=== PATIENT | male | born 1960 | race Caucasian/White ===

== ENCOUNTER 2023-05-14 09:24 | Outpatient (OUT) | payer MEDICARE, SELFPAY ==
[2023-05-14 09:53] LABS: Basophils Percent Auto 0.5 % (0.2-2.0); Eosinophils Absolute Auto 0.1 10^3/uL (0.0-0.7); Eosinophils Percent Auto 1.2 % (0.9-7.0); Hematocrit 46.5 % (42.0-54.0); Hemoglobin 15.5 g/dL (14.0-18.0); Immature Granulocytes Abs Auto 0.02 10^3/uL (0.00-0.03); Immature Granulocytes Pct Auto 0.4 % (0.0-0.5); Lymphocytes Absolute Auto 1.8 10^3/uL (1.2-3.8); Lymphocytes Percent Auto 31.3 % (20.5-60.0); Mean Corpuscular HGB Conc 33.3 g/dL (29.9-35.2); Mean Corpuscular Hemoglobin 33.6 pg (25.9-34.0); Mean Corpuscular Volume 100.9 fL (80.0-94.0); Mean Platelet Volume 8.9 fL (9.5-13.5); Monocytes Absolute Auto 0.8 10^3/uL (0.3-0.8); Monocytes Percent Auto 13.3 % (1.7-12.0); Neutrophils Percent Auto 53.3 % (43.0-75.0); Platelet Count 257 10^3/uL (150-450); Red Blood Count 4.61 10^6/uL (4.70-6.10); Red Cell Distribution Width 13.1 % (11.0-15.0); White Blood Count 5.7 10^3/uL (4.0-11.0)
[2023-05-14 10:15] LABS: Estimated Average Glucose 174 mg/dL; Glycohemoglobin A1C 7.7 % (4.5-6.2)
[2023-05-14 11:26] LABS: Prostate Specific Antigen Scrn 0.85 ng/mL (<=4.00)
[2023-05-14 12:04] LABS: Alanine Aminotransferase 51 U/L (16-63); Albumin Level 3.9 g/dL (3.4-5.0); Alkaline Phosphatase 48 U/L (46-116); Anion Gap 14.8; Aspartate Amino Transferase 25 U/L (15-37); BUN Creatinine Ratio 15.2; Bilirubin Total 0.5 mg/dL (0.2-1.0); Calcium 8.8 mg/dL (8.5-10.1); Carbon Dioxide 25.4 mmol/L (21.0-32.0); Chloride 102 mmol/L (98-107); Chol HDL Ratio 2.8; Cholesterol 138 mg/dL (<=200); Estimated GFR (African America >60 (>=60); Estimated GFR (Non-African Ame >60 (>=60); Globulin 3.8 g/dL; Glucose 167 mg/dL (74-106); HDL Cholesterol 49 mg/dL (40-60); LDL Cholesterol Calculated 66.6 mg/dL; Potassium 4.2 mmol/L (3.5-5.1); Sodium 138 mmol/L (136-145); Total Protein 7.7 g/dL (6.4-8.2); Triglycerides 112 mg/dL (<=150); VLDL CHOLESTEROL 22.4 mg/dL
== END 2023-05-14 09:25 | disposition home or self-care (01) ==
LOC: LAB 09:29
PROVIDERS: PCP Family Medicine; Visit Provider Family Medicine
DX: Z00.00 Encounter for general adult medical examination without abnormal findings (principal); E11.65 Type 2 diabetes mellitus with hyperglycemia; E78.5 Hyperlipidemia, unspecified; Z12.5 Encounter for screening for malignant neoplasm of prostate
CPT/HCPCS: 36415; 80053; 80061; 83036; 85025; G0103

== ENCOUNTER 2024-03-25 08:29 | Outpatient (OUT) | payer MEDICARE, SELFPAY ==
--- OUTSIDE RECORDS SUMMARY | 2024-03-25 08:52 | XMS_ITS | CCD ---
Author Organization [facility] Care Team Providers Care Borough Coordinator Name Role Phone PHYSICIAN, DEFAULT Admitting Unavailable PHYSICIAN, DEFAULT Attending Unavailable ASHLEE, DR JEN Aldridge Attending Unavailable ASHLEE, DR JEN Aldridge Consulting Unavailable ASHLEE, DR JEN Aldridge Primary Care Unavailable ASHLEE, DR JEN Aldridge Admitting Unavailable Jen Akins Unavailable DIVINE, CHRISTIAN Attending Unavailable AKINS, JEN Referring Unavailable BRINK, CHRISTIAN Attending Unavailable ASHLEE, JEN Referring Unavailable BRINK, CHRISTIAN Attending Unavailable AKINS, JEN Referring Unavailable BRINK, CHRISTIAN Attending Unavailable AKINS, JEN Referring Unavailable AYALA SOSA Attending Unavailable AKINS, JEN Referring Unavailable BRINK, CHRISTIAN Attending Unavailable AKINS, JEN Referring Unavailable BRINK, CHRISTIAN Attending Unavailable ASHLEE, JEN Referring Unavailable KARLO VELA Attending Unavailable AKINS, JEN Referring Unavailable Medications Current Medications Medication Drug Class(es) Dates Sig (Normalized) Sig (Original) atorvastatin 20 mg oral tablet (6 sources) HMG-CoA Reductase Inhibitor Start: 09-02-2023 End: 02-11-2024 take 1 tablet by mouth once daily Atorvastatin Active 0 .ROUTE .COMPLEX 90 February 11, 2024 9:48am take 1 tablet by mouth once daily Start: 09-02-2023 End: 09-02-2023 take 20 mg by mouth once daily Atorvastatin Discontinu ed 20 MG PO Daily September 02, 2023 1:00am September 02, 2023 3:24pm Start: 12-20-2021 take 1 tablet by sharad th once daily Atorvastatin Calcium 20 MG Atorvastatin Calcium 20MG, 1 (one) Tablet daily # 90, 12/20/2021, Ref. x3. Active Oral daily for 0 Dec, Active Diabetic Shoes (2 sources) Start: 03-03-2021 Diabetic Shoes Diabetic Shoes , 1 (one) Each as directed # 1, 03/03/2021, No Refill. Active as directed for 0 diabetic shoes with custom inserts *Reorder from [employer] for eRx and Interaction Alerts* Feb, Active glyBURIDE 2.5 mg / metFORMIN hydrochloride 500 mg oral tablet (6 sources) Biguanide, Sulfonylurea Start: 09-02-2023 End: 02-25-2024 take 1 tablet by mouth twice daily Glyburide-Metform in Active 0 .ROUTE .COMPLEX 180 February 25, 2024 11:10am take 1 tablet by mouth twice a day Start: 09-02-2023 End: 09-02-2023 take 1 tablet by mouth twice daily Glyburide-Metformin Discontinued 1 TAB PO Twice daily September 02, 2023 1:00am September 02, 2023 3:24pm take 1 tablet by sharad th twice daily glyBURIDE-metFORMIN 2.5-500 MG take 1 tablet by mouth twice a day for 90 Active meloxicam 7.5 mg oral tablet (2 sources) Nonsteroidal Anti-inflammatory Drug Start: 05-10-2023 take 1 tablet by mouth every twenty-four hours Meloxicam 7.5 MG 1 tablet Orally Once a day for 30 day(s) May, Active Problems Problem Classification Problem Date Documented Da te Episodic/Chronic Diabetes mellitus with complications (3 sources) Type 2 diabetes mellitus; Translations: [Type 2 diabetes mellitus with hyperglycemia] 03-24-2024 Chronic Diabetes mellitus without complication (1 source) Type 2 diabetes mellitus without complications; Translations: [Diabetes mellitus without mention of complication, type II or unspecified type, not stated as uncontrolled] 03-24-2024 Chronic Disorders of lipid metabolism (6 sources) Hyperlipidemia; Translations: [Hyperlipidemia, unspecified] 03-24-2024 Chronic Other ear and sense organ disorders (2 sources) Impacted cerumen; Translations: [Impacted cerumen] Episodic Other inflammatory condition of skin (2 sources) Rosacea; Translations: [Rosacea, unspecified] Chronic Other screening for suspected conditions (not mental disorders or infectious disease) (2 sources) Patient encounter status; Translations: [Encounter for screening for malignant neoplasm of prostate] 03-24-2024 Episodic Otitis media and related conditions (2 sources) Otitis; Translations: [Otitis] Episodic Results Test Name Value Interpretation Reference Range Facil ity GLYCOHEMOGLOBIN A1Con 2020 ADA RECOMMENDATION ADA THERAPEUTIC TARGET 6.0 - 7.0 ACTION SUGGESTED > 7.0 Normal [facility] Comment on above: Performed By: #### A 1C #### [facility] [address], [place] [address] Suzanne Granger Glucose [Mass/Vol] 183 mg/dL Normal [facility] Comment on above: Performed By: #### A 1C #### [facility] [address], [place] [address] Suzanne Granger HbA1c (Bld) [Mass fraction] 8.0 % Critically high <=6.0 [facility] Comment on above: Performed By: #### A 1C #### [facility] [address], [place] [address] Suzanne Granger Vital Signs Date Time Vital Sign Value Performing Clinician Pardeepi saeed 03-24-2024 11:38-0400 Body height 165.1 cm [facility] 03-24-2024 11:38-0400 Body mass index (BMI) [Ratio] 30.1 kg/m2 [facility] 03-24-2024 11:38-0400 Body weight 82.1 kg [facility] 03-24-2024 11:38-0400 Diastolic blood pressure 74 mm[Hg] [facility] 03-24-2024 11:38-0400 Heart rate 90 /min [facility] 03-24-2024 11:38-0400 Systolic blood pressure 116 mm[Hg] [facility] Encounters Encounter Date Encounter Type Care Provider Facility Start: 03-24-2024 End: 03-24-2024 ambulatory [facility] Work Phone: Start: 03-24-2024 End: 03-24-2024 Patient encounter procedure [facility] Work Phone: Start: 06-20-2023 End: 06-20-2023 ambulatory CHRISTIAN HASKINS Not Available Start: 06-13-2023 End: 06-13-2023 ambulatory CHRISTIAN HASKINS Not Available Start: 06-11-2023 End: 06-11-2023 ambulatory AYALA SOSA Not Available Start: 06-06-2023 End: 06-06-2023 ambulatory CHRISTIAN BRLINDSEY Not Available Start: 06-04-2023 End: 06-04-2023 ambulatory CHRISTIAN BRINK Not Available Start: 05-28-2023 End: 05-28-2023 ambulatory CHRISTIAN BRINK Not Available Start: 05-23-2023 End: 05-24-2023 ambulatory CHRISTIAN BRINK Not Available Start: 05-21-2023 Telephone encounter Jen Akins [facility] Start: 05-21-2023 End: 05-21-2023 ambulatory KARLO VELA [facility] [id number] Other Start: 02-27-2021 End: 02-28-[address] JEN AKINS Facility: Start: 11-05-2018 End: 11-06-2018 Patient encounter procedure DEFAULT PHYSICIAN Facility:[facility] Plan of Treatment Date Care Activity Detail Author Comprehensive metabo lic 2000 panel - Serum or Plasma [facility] enter Microalbumin [Mass/volume] in Urine [facility] Immunizations Immunization Date Immunization Notes Care Provider Fa cility 05-01-2022 influenza virus vaccine, split virus (incl. purified surface antigen) Jen Akins Other [facility] [employer] Other 05-01-2022 influenza virus vaccine, unspecified formulation [facility] 04-11-2021 COVID-19 Vaccine Pfi zer - Documentation Purposes Only Jen Akins Other [facility] 04-03-2021 influenza virus vaccine, split virus (incl. purified surface antigen) Jen Akins Other [employer] [facility] Other 04-03-2021 influenza virus vaccine, unspecified formulation [facility] 10-06-2020 COVID-19 Vaccine Pfi zer - Documentation Purposes Only Jen Akins Other [facility] 09-15-2020 COVID-19 Vaccine Pfi zer - Documentation Purposes Only Jen Akins Other [facility] 03-30-2020 influenza virus vaccine, split virus (incl. purified surface antigen) Jen Akins Other [facility] [facility] Other 03-30-2020 influenza virus vaccine, unspecified formulation [facility] 03-14-2017 tetanus and diphther ia toxoids, adsorbed, preservative free, for adult use (5 Lf of tetanus toxoid and 2 Lf of diphtheria toxoid) Jen Akins Other [facility] 12-11-2016 pneumococcal polysaccharide vaccine, 23 valent Jen Akins Other [facility] 03-26-2016 tetanus and diphther ia toxoids, adsorbed, preservative free, for adult use (5 Lf of tetanus toxoid and 2 Lf of diphtheria toxoid) Jen Akins Other [facility] Payers Date Payer Category Payer Medicare [id number] 2.1 [id number] 1961 Self-pay [id number] 1960 Unknown [id number] 1960 Unknown [id number] [id number] .[id number] 1958 Unknown [id number] 2.16.840 .[id number] 1958 Unknown [id number] 2.16.840 .[id number] 1958 Unknown [id number] 2.16.840 .[id number] 1958 Unknown [id number] 2.16.840 .[id number] 1958 Unknown [id number] 2.16.840 .[id number] 1958 Unknown [id number] 2.16.840 .[id number] 1958 Unknown [id number] 2.16.840. [id number] Unknown Unknown [id number] 2.16.84 [id number] Social History Date Type Detail Facility Unknown if ever smoked [facility] Other Sex Assigned At Sex Assigned At Bir th [facility] [employer] [facility] Other Start: 05-10-2023 Tobacco smoking status NHIS Never smoked tobacco (finding) [facility] Start: 1960 Sex Assigned At Male F [facility] Evaluation note Note Date & Type Note Facility Evaluation note No Information [facility] [employer] Other Evaluation note Note Date & Type Note Facility Evaluation note Diagnosis Onset Date Hyperlipidemia, unspecified acute Screening PSA (prostate specific antigen) acute Type II diabetes mellitus ac alana [facility] Work Phone: History general Narrative - Reported Note Date & Type Note Facility History general Narrative - Reported Type Medical History Rosacea Medical History Hyperlipidemia, unspecified Surgical History R foot surgery - 4th 5th toes 2016 (Dr. Katarzyna Pozo) Hospitalization History Heat Stroke [facility] Other Summary Purpose Family History Relationship Condition Age at Onset Recorded Date/T luana father Unknown mother Diabetes mellitus Unknown Advance Directives Advance Directive Response Recorded Date/ Time Advance Directives No March 11:23am Chief Complaint and Reason for Visit Chief Complaint diabetic check up/ra sh on face Reason for Visit Hyperlipidemia, unsp ecified Screening PSA (prostate specific antigen) Type II diabetes mellitus Additional Source Comments (unrecognized sect ion and content) No Status Records FoundNo Status Records FoundNo Status Records Found INFORMATION SOURCE (unrecogn ized section and content) DATE CREATED AUTHOR 11/12/2018 [facility] DATE CREATED AUTHOR AUTHOR'S ORGANIZ ATION 02/28/2021 [facility] DATE CREATED AUTHOR AUTHOR'S ORGANIZ ATION 06/22/2023 [facility] EPIC REASON FOR VISIT (unrecogniz ed section and content) pt/ot ordermessage Care Teams (unrecognized sec tion and content) Team Status: Active Member Role Status Dates Jen Akins MD Primary Care Provider Active Team Status: Inactive Member Role Status Dates Jen Akins MD Primary Care Provide r, Attending Provider Active Start: March 24, 2024 End: March 24, 2024 Goals (unrecognized section and content) Goals may be documented in a n alternate section FOR RECORDS PERTAINING TO PATIENTS WHO ARE OR HAVE BEEN ENROLLED IN A CHEMICAL DEPENDENCY/SUBSTANCEABUSE PROGRAM, SOME INFORMATION MAY BE OMITTED. This clinical summary was aggregated from multiple sources. Caution should be exercised in using it in the provision of clinical care. This summary normalizes information from multiple sources, and as a consequence, information in this document may materially change the coding, format and clinical context of patient data. In addition, data may be omitted in some cases. CLINICAL DECISIONS SHOULD BE BASED ON THE PRIMARY CLINICAL RECORDS. [facility]. provides no warranty or guarantee of the accuracy or completeness of information in this document.
[2024-03-25 08:56] LABS: Basophils Percent Auto 0.5 % (0.2-2.0); Eosinophils Absolute Auto 0.1 10^3/uL (0.0-0.7); Eosinophils Percent Auto 1.6 % (0.9-7.0); Hematocrit 45.2 % (42.0-54.0); Hemoglobin 15.4 g/dL (14.0-18.0); Immature Granulocytes Abs Auto 0.01 10^3/uL (0.00-0.03); Immature Granulocytes Pct Auto 0.2 % (0.0-0.5); Lymphocytes Absolute Auto 1.6 10^3/uL (1.2-3.8); Lymphocytes Percent Auto 25.5 % (20.5-60.0); Mean Corpuscular HGB Conc 34.1 g/dL (29.9-35.2); Mean Corpuscular Hemoglobin 33.9 pg (25.9-34.0); Mean Corpuscular Volume 99.6 fL (80.0-94.0); Mean Platelet Volume 9.1 fL (9.5-13.5); Monocytes Absolute Auto 0.7 10^3/uL (0.3-0.8); Monocytes Percent Auto 11.9 % (1.7-12.0); Neutrophils Absolute Auto 3.8 10^3/uL (1.4-6.5); Neutrophils Percent Auto 60.3 % (43.0-75.0); Platelet Count 225 10^3/uL (150-450); Red Blood Count 4.54 10^6/uL (4.70-6.10); Red Cell Distribution Width 12.9 % (11.0-15.0); White Blood Count 6.2 10^3/uL (4.0-11.0)
[2024-03-25 09:05] LABS: Microalbumin Urine Random 1.7 mg/dL (<=30.0)
[2024-03-25 09:08] LABS: Estimated Average Glucose 180 mg/dL; Glycohemoglobin A1C 7.9 % (4.5-6.2)
[2024-03-25 09:20] LABS: Alanine Aminotransferase 33 U/L (16-63); Albumin Level 3.7 g/dL (3.4-5.0); Alkaline Phosphatase 58 U/L (46-116); Anion Gap 9.2; Aspartate Amino Transferase 22 U/L (15-37); BUN Creatinine Ratio 15.1; Bilirubin Total 0.5 mg/dL (0.2-1.0); Calcium 8.9 mg/dL (8.5-10.1); Chloride 105 mmol/L (98-107); Chol HDL Ratio 2.4; Cholesterol 122 mg/dL (<=200); Estimated GFR (African America >60 (>=60); Estimated GFR (Non-African Ame >60 (>=60); Globulin 3.6 g/dL; Glucose 177 mg/dL (74-106); HDL Cholesterol 50 mg/dL (40-60); LDL Cholesterol Calculated 60.4 mg/dL; Potassium 4.2 mmol/L (3.5-5.1); Sodium 140 mmol/L (136-145); Total Protein 7.3 g/dL (6.4-8.2); Triglycerides 58 mg/dL (<=150); VLDL CHOLESTEROL 11.6 mg/dL
[2024-03-25 09:31] LABS: Prostate Specific Antigen Scrn 2.55 ng/mL (<=4.00)
== END 2024-03-25 08:30 | disposition home or self-care (01) ==
LOC: LAB 08:31
PROVIDERS: PCP Family Medicine; Visit Provider Family Medicine
DX: E78.5 Hyperlipidemia, unspecified (principal); E11.9 Type 2 diabetes mellitus without complications; Z12.5 Encounter for screening for malignant neoplasm of prostate
CPT/HCPCS: 36415; 80053; 80061; 82043; 83036; 85025; G0103

== ENCOUNTER 2025-03-19 12:29 | Outpatient (OUT) | payer MEDICARE, SELFPAY ==
--- OUTSIDE RECORDS SUMMARY | 2024-07-10 05:00 | XMS_ITS | Continuity of Care Document ---
Author Organization [facility] Address [address] [place] [address] Phone Care Team Providers Care Mirror Fabrication Supervisor Name Role Phone Ross Marie DO Unavailable Unavailable Allergies, Adverse Reactions, Alerts Substance Reaction Status Criticality PENICILLIN HivesHives Active No Information Medications Medication Instructions Dosage Effective Dates (start - stop) Status Comments Crestor 20 mg tablet take 1 tablet by or al route every day 20 MG - Active Protonix 40 mg tablet,delayed release take 1 tablet by oral route every day 40 MG - Active Effexor XR 150 mg capsule,extended release take 1 capsule by oral route every day 150 MG - Active Ozempic 0.25 mg or 0.5 mg (2 mg/3 mL) subcutaneous pen injector inject (0.5MG) by subcutaneous route every week on the same day of each week 0.5 MG - Active Farxiga 10 mg tablet take 1 tablet by or al route every day in the morning 10 MG - Active buspirone 5 mg tablet take 1 tablet by o ral route 2 times every day 5 MG - Active metformin 1,000 mg tablet take 1 tablet by oral route 2 times every day with morning and evening meals 1000 MG - Active lisinopril 10 mg tablet take 1 tablet by oral route every day 10 MG - Active Procedures Procedure Date Office/outpatient visit,new, mod 2024 X-ray exam of hand, 3+ views X-ray exam of knee, 4+ views Inject tndn sheath/lgmnt/gangl cyst Triamcinolone acetonide inj Advance Directives Directive Yes / No Effective Date File Name No Information Encounters Encounter Description Practice Location Reason(s) For Visit Diagnoses Date Provider Providers Copied on Encounter Office/outpa tient visit,[facility], [address] [place], [address], [place] tel:[phone] LEFT HAND 4TH FINGER (chief complaint) Left knee (chief complaint) Unspecified fracture of navicular [scaphoid] bone of left wrist, subsequent encounter for fracture with nonunionUnilat eral primary osteoarthritis , left kneeTrigger finger, left ring finger [address], [place], [id number] , [place]. tel:[phone] Referring Provider: Miguel Singh, [address] [place], [place] [address] , [place], [address] . tel:[phone] Family History Family Member Type Diagnosis Age At Onset No Information Payers Payer name Insurance type Covered alliance party ID Authoryazmina donavon(s) Medicare [place] MB [id number] [employer] [id number] Social History Type Description Quantity Date Captured Comments Alcohol Use Details Unknown Caffeine Use Details Unknown Tobacco Use Status No Information Smoking Status No Information Non-Smoking Tobacco Use Details : No Details Available : No Details Available Sex Male Vital Signs Date / Time: Height Weight BMI Pulse Rate Blood Pressure Temperature Respiratory Rate Body Surface Area Head Circumference Head Circ. Percentile Wt./Ziyad. Percentile BMI percentile Pulse Ox Inhaled Ox 9:16 AM 100.244 kg (221.00 lbs) Chief Complaint And Reason For Visit From encounter dated '07/10/2024 09:00'. LEFT HAND 4TH FINGER (chief complaint). Description: Patient presents for left hand 4th finger pain. He states the finger intermittently sicks. He states he's had the issue for approximately 6 months. Left knee (chief complaint). Description: Patient presents for left knee pain. Patient states he's had the intermittent pain for approximately 3-4 months. Denies injury. Denies numbness or tingling. Reason For Referral Reason For Referral No Information History Of Present Illness Encounter Date Complaint History Of Prese nt Illness Left knee Patient presents for left knee pain. Patient states he's had the intermittent pain for approximately 3-4 months. Denies injury. Denies numbness or tingling. LEFT HAND 4TH FINGER Patient pre sents for left hand 4th finger pain. He states the finger intermittently sicks. He states he's had the issue for approximately 6 months. Functional Status Date Functional Assessmen t No Information Instructions Date Instruction Additional Infor mation No Information Assessments Type Assessment Date No Information Patient Care Teams Name Effective Dates (start - stop) Status Members No Information
--- OUTSIDE RECORDS SUMMARY | 2025-03-19 12:33 | XMS_ITS | Clinical Summary ---
Author Organization [facility] Address [address] [place] [address] Care Team Providers Care Sales Engagement Manager Name Role Phone Unavailable Primary Care Provider Unavailabl e Social History Tobacco Use Types Packs/Day Years Used Date Smoking Tobacco: Never Assessed Sex and Gender Information Value Date Recorded Sex Assigned at Not on file Legal Sex Male 11:06 PM EDT Gender Identity Not on file Sexual Orientation Not on file Plan of Treatment Not on file
--- OUTSIDE RECORDS SUMMARY | 2025-03-19 12:35 | XMS_ITS | CCD ---
Author Organization [facility] Care Team Providers Care Mark Up Designer Name Role Phone PHYSICIAN, DEFAULT Admitting Unavailable PHYSICIAN, DEFAULT Attending Unavailable ASHLEE, DR JEN Aldridge Attending Unavailable ASHLEE, DR JEN Aldridge Consulting Unavailable ASHLEE, DR JEN Aldridge Primary Care Unavailable ASHLEE, DR JEN Aldridge Admitting Unavailable Jen Akins Unavailable BRLINDSEY, CHRISTIAN Attending Unavailable AKINS, JEN Referring Unavailable BRINK, CHRISTIAN Attending Unavailable ASHLEE, JEN Referring Unavailable BRINK, CHRISTIAN Attending Unavailable AKINS, JEN Referring Unavailable BRINK, CHRISTIAN Attending Unavailable AKINS, JEN Referring Unavailable AYALA SOSA Attending Unavailable AKINS, JEN Referring Unavailable BRINK, CHRISTIAN Attending Unavailable AKINS, JEN Referring Unavailable BRINK, CHRISTIAN Attending Unavailable ASHLEE, JEN Referring Unavailable KARLO VELA Attending Unavailable ASHLEE, JEN Referring Unavailable Jen Akins MD Primary Care Provider [phone] Jen Akins MD Attending Provider [phone] Medications Current Medications Medication Drug Class(es) Dates Sig (Normalized) Sig (Original) amoxicillin 80 mg/ml oral suspension (2 sources) Penicillin-class Antibacterial Start: 03-11-2025 take 400 mg by mouth twice daily Amoxicillin 400 mg/5 mL suspension for reconstitution Active 400 MG PO Twice daily 70 7 March 11, 2025 12:00am Complies with drug therapy Diabetic Shoes (2 sources) Start: 03-03-2021 Diabetic Shoes Diabetic Shoes , 1 (one) Each as directed # 1, 03/03/2021, No Refill. Active as directed for 0 diabetic shoes with custom inserts *Reorder from [employer] for eRx and Interaction Alerts* Feb, Active doxycycline hyclate 100 mg oral tablet (5 sources) Tetracycline-class Drug Start: 04-21-2024 End: 09-28-2024 take 1 tablet by mouth once daily Doxycycline Hyclate 100 mg tablet Active 100 MG PO Daily September 28, 2024 8:31am Complies with drug therapy glipiZIDE 10 mg oral tablet (5 sources) Sulfonylurea Start: 03-25-2024 End: 09-28-2024 take 1 tablet by mouth once daily Glipizide 10 mg tablet Active 10 MG PO Daily September 28, 2024 8:31am Complies with drug therapy meloxicam 7.5 mg oral tablet (2 sources) Nonsteroidal Anti-inflammatory Drug Start: 05-10-2023 take 1 tablet by mouth every twenty-four hours Meloxicam 7.5 MG 1 tablet Orally Once a day for 30 day(s) May, Active metFORMIN hydrochloride 1000 mg oral tablet (5 sources) Biguanide Start: 03-25-2024 End: 01-22-2025 take 1 tablet by mouth twice daily Metformin 1,000 mg tablet Active 1000 MG PO Twice daily January 22, 2025 12:48pm Complies with drug therapy Completed/Discontinued Medications Medication Drug Class(es) Dates Sig (Normalized) Sig (Original) atorvastatin 20 mg oral tablet (18 sources) HMG-CoA Reductase Inhibitor Start: 09-02-2023 End: 02-11-2024 take 1 tablet by mouth once daily Atorvastatin 20 mg tablet Discontinued 0 .ROUTE .COMPLEX 90 November 18, 2023 12:41pm February 11, 2024 9:48am take 1 tablet by mouth once daily Start: 09-02-2023 End: 09-02-2023 take 1 tablet by mouth once daily Atorvastatin 20 mg tablet Discontinued 20 MG PO Daily September 02, 2023 1:00am September 02, 2023 3:24pm Start: 12-20-2021 take 1 tablet by sharad th once daily Atorvastatin Calcium 20 MG Atorvastatin Calcium 20MG, 1 (one) Tablet daily # 90, 12/20/2021, Ref. x3. Active Oral daily for 0 Dec, Active glyBURIDE 2.5 mg / metFORMIN hydrochloride 500 mg oral tablet (18 sources) Biguanide, Sulfonylurea Start: 09-02-2023 End: 03-25-2024 take 1 tablet by mouth twice daily Glyburide-Metformin 2.5-500 mg tablet Discontinued 0 .ROUTE .COMPLEX 180 February 25, 2024 11:10am March 25, 2024 12:35pm take 1 tablet by mouth twice a day Start: 09-02-2023 End: 09-02-2023 take 1 tablet by mouth twice daily Glyburide-Metformin 2.5-500 mg tablet Discontinued 1 TAB PO Twice daily September 02, 2023 1:00am September 02, 2023 3:24pm take 1 tablet by sharad twice daily glyBURIDE-metFORMIN 2.5-500 MG take 1 tablet by mouth twice a day for 90 Active Problems Problem Classification Problem Date Documented Da te Episodic/Chronic Diabetes mellitus with complications (8 sources) Type 2 diabetes mellitus; Translations: [Type 2 diabetes mellitus with hyperglycemia] 03-24-2024 Chronic Diabetes mellitus without complication (2 sources) Type 2 diabetes mellitus without complications; Translations: [Diabetes mellitus without mention of complication, type II or unspecified type, not stated as uncontrolled] 03-24-2024 Chronic Disorders of lipid metabolism (10 sources) Hyperlipidemia; Translations: [Hyperlipidemia, unspecified] 03-24-2024 Chronic Lymphadenitis (3 sources) Cervical lymphadenopathy; Translations: [Localized enlarged lymph nodes] Episodic Other ear and sense organ disorders (2 sources) Impacted cerumen; Translations: [Impacted cerumen] Episodic Other inflammatory condition of skin (5 sources) Rosacea; Translations: [Rosacea, unspecified] 03-25-2024 Chronic Other inflammatory condition of skin (1 source) Rosacea, unspecified; Translations: [Rosacea] 03-24-2024 Chronic Other screening for suspected conditions (not mental disorders or infectious disease) (6 sources) Patient encounter status; Translations: [Encounter for screening for malignant neoplasm of prostate] 03-24-2024 Episodic Otitis media and related conditions (2 sources) Otitis; Translations: [Otitis] Episodic Unclassified (1 source) R59.0 - Localized enlarged lymph nodes Results Test Name Value Interpretation Reference Range Facility Basophils Auto (Bld) [#/Vol] on 03-25-2024 Basophils (Bld) [#/Vol] 0.0 10 3/uL 0.0-0.1 [facility] Basophils/100 WBC Auto (Bld) on 03-25-2024 Basophils/100 WBC (Bld) 0.5 % 0.2-2.0 [facility] Cholesterol in LDL Calc [Mas s/Vol]on 03-25-2024 Cholesterol in LDL [Mass/Vol] 60.4 mg/dL [facility] Comment on above: <100 mg/dl [id number] 0-129 mg/dl NEAR OR ABOVE [id number] mg/dl BORDERLINE [id number] mg/dl HIGH>190 mg/dl VERY HIGH Cholesterol in VLDL Calc [Ma ss/Vol]on 03-25-2024 Cholesterol in VLDL [Mass/Vol] 11.6 mg/dL [facility] Eosinophils/100 WBC Auto (Bl d)on 03-25-2024 Eosinophils/100 WBC (Bld) 1.6 % 0.9-7.0 [facility] Erythrocyte distribution wid th Auto (RBC) [Ratio]on 03-25-2024 Erythrocyte distribution width (RBC) [Ratio] 12.9 % 11.0-15.0 [facility] Estimated glomerular filtrat ion rate (GFR) non- Americanon 03-25-2024 GFR/1.73 sq M.predicted among non-blacks MDRD (S/P/Bld) [Vol rate/Area] mL/min/{1.73_m2} >=60 [facility] Globulin Calc (S) [Mass/Vol] on 03-25-2024 Globulin (S) [Mass/Vol] 3.6 g/dL [facility] Glucose mean value [Mass/vol ume] in Blood Estimated from glycated hemoglobinon 03-25-2024 Average glucose Estimated from glycated hemoglobin (Bld) [Mass/Vol] 180 mg/dL [facility] Hematocrit Auto (Bld) [Volum e fraction]on 03-25-2024 Hematocrit (Bld) [Volume fraction] 45.2 % 42.0-54.0 [facility] Hemoglobin [Mass/volume] in Bloodon 03-25-2024 Hemoglobin (Bld) [Mass/Vol] 15.4 g/dL 14.0-18.0 [facility] Laboratory - Chemistry and C hemistry - challengeon 03-25-2024 Albumin [Mass/Vol] 3.7 g/dL 3.4-5.0 [facility] ALP [Catalytic activity/Vol] 58 U/L 46-116 [facility] ALT [Catalytic activity/Vol] 33 U/L 16-63 [facility] AST [Catalytic activity/Vol] 22 U/L 15-37 [facility] Bilirubin [Mass/Vol] 0.5 mg/dL 0.2-1.0 [facility] Calcium [Mass/Vol] 8.9 mg/dL 8.5-10.1 [facility] Chloride [Moles/Vol] 105 mmol/L 98-107 [facility] Cholesterol [Mass/Vol] 122 mg/dL <=200 [facility] Cholesterol in HDL [Mass/Vol] 50 mg/dL 40-60 [facility] Comment on above: > or =60 mg/dl - LOW CARDIOVASCULAR RISK<40 mg/dl - HIGH CARDIOVASCULAR RISK CO2 [Moles/Vol] 30.0 mmol/L 21.0-32.0 [facility] Creatinine [Mass/Vol] 1.06 mg/dL 0.70-1.30 [facility] GFR/1.73 sq M.predicted MDRD (S/P/Bld) [Vol rate/Area] mL/min/{1.73_m2} >=60 [facility] Glucose [Mass/Vol] 177 mg/dL High 74-106 [facility] Potassium [Moles/Vol] 4.2 mmol/L 3.5-5.1 [facility] Protein [Mass/Vol] 7.3 g/dL 6.4-8.2 [facility] Sodium [Moles/Vol] 140 mmol/L 136-145 [facility] Triglyceride [Mass/Vol] 58 mg/dL <=150 [facility] Urea nitrogen [Mass/Vol] 16.0 mg/dL 7.0-18.0 [facility] Urea nitrogen/Creatinine [Mass ratio] 15.1 mg/mg [facility] Laboratory - Hematology and Cell countson 03-25-2024 HbA1c (Bld) [Mass fraction] 7.9 % High 4.5-6.2 [facility] Comment on above: ADA RECOMMENDED LIMI T 4.0 - 6.0ADA THERAPEUTIC TARGET < 7.0ACTION SUGGESTED> 7.0 Immature granulocytes/100 WBC (Bld) 0.2 % 0.0-0.5 [facility] Leukocytes [#/volume] correc regan for nucleated erythrocytes in Blood by Automated counon 03-25-2024 WBC corrected for nucl RBC Auto (Bld) [#/Vol] 6.2 10 3/uL 4.0-11.0 [facility] Lymphocytes Auto (Bld) [#/Vo l]on 03-25-2024 Lymphocytes (Bld) [#/Vol] 1.6 10 3/uL 1.2-3.8 [facility] Lymphocytes/100 WBC Auto (Bl d)on 03-25-2024 Lymphocytes/100 WBC (Bld) 25.5 % 20.5-60.0 [facility] MCH Auto (RBC) [Entitic mass ]on 03-25-2024 MCH (RBC) [Entitic mass] 33.9 pg 25.9-34.0 [facility] MCHC Auto (RBC) [Mass/Vol]on 03-25-2024 MCHC (RBC) [Mass/Vol] 34.1 g/dL 29.9-35.2 [facility] MCV Auto (RBC) [Entitic vol] on 03-25-2024 MCV (RBC) [Entitic vol] 99.6 fL High 80.0-94.0 [facility] Microalbumin [Mass/volume] i n Urineon 03-25-2024 Albumin DL <= 20 mg/L (U) [Mass/Vol] 1.7 mg/dL <=30.0 [facility] Monocytes Auto (Bld) [#/Vol] on 03-25-2024 Monocytes (Bld) [#/Vol] 0.7 10 3/uL 0.3-0.8 [facility] Monocytes/100 WBC Auto (Bld) on 03-25-2024 Monocytes/100 WBC (Bld) 11.9 % 1.7-12.0 [facility] Neutrophils Auto (Bld) [#/Vo l]on 03-25-2024 Neutrophils (Bld) [#/Vol] 3.8 10 3/uL 1.4-6.5 [facility] Neutrophils/100 WBC Auto (Bl d)on 03-25-2024 Neutrophils/100 WBC (Bld) 60.3 % 43.0-75.0 [facility] No Panel Informationon 03-25 Eosinophils # (Auto) 0.1 10 3/uL 0.0-0.7 [facility] Immature Granulocyte # (Auto) 0.01 10 3/uL 0.00-0.03 [facility] Prostate Specific Antigen Screen 2.55 ng/mL <=4.00 [facility] Platelet mean volume Auto (B ld) [Entitic vol]on 03-25-2024 Platelet mean volume (Bld) [Entitic vol] 9.1 fL Low 9.5-13.5 [facility] Platelets Auto (Bld) [#/Vol] on 03-25-2024 Platelets (Bld) [#/Vol] 225 10 3/uL 150-450 [facility] RBC Auto (Bld) [#/Vol]on RBC (Bld) [#/Vol] 4.54 10 6/uL Low 4.70-6.10 [facility] Serum or plasma albumin/glob ulin mass ratioon 03-25-2024 Albumin/Globulin [Mass ratio] 1.0 {ratio} [facility] Serum or plasma anion gap de terminationon 03-25-2024 Anion gap [Moles/Vol] 9.2 mmol/L [facility] Serum or plasma total choles terol/high density lipoprotein (HDL) cholesterol mass chemo 03-25-2024 Cholesterol.total/Cho lesterol in HDL [Mass ratio] 2.4 {ratio} [facility] Comment on above: 3.3 - 4.4 LOW RISK4. 4 - 7.1 AVERAGE RISK7.1 - 11.0 MODERATE RISK>11.0 HIGH RISK GLYCOHEMOGLOBIN A1Con 2020 ADA RECOMMENDATION ADA THERAPEUTIC TARGET 6.0 - 7.0 ACTION SUGGESTED > 7.0 Normal [facility] Comment on above: Performed By: #### A 1C #### [facility] [address], [place] [address] Suzanne Granger Glucose [Mass/Vol] 183 mg/dL Normal [facility] Comment on above: Performed By: #### A 1C #### [facility] [address] [place], [place] [address] Suzanne Granger HbA1c (Bld) [Mass fraction] 8.0 % Critically high <=6.0 [facility] [place] [facility] Comment on above: Performed By: #### A 1C #### [facility] [address] [place] [id number] Suzanne Granger Vital Signs Date Time Vital Sign Value Performing Clinician Faci lity 03-11-2025 11:48-0400 Body height 165.1 cm Jen Akins MD Work Phone: [facility] 03-11-2025 11:48-0400 Body mass index (BMI) [Ratio] 28.9 kg/m2 Jen Akins MD Work Phone: [facility] 03-11-2025 11:48-0400 Body weight 78.92 kg Jen Akins MD Work Phone: [facility] 03-11-2025 11:48-0400 Diastolic blood pressure 73 mm[Hg] Jen Akins MD Work Phone: [facility] 03-11-2025 11:48-0400 Heart rate 93 /min Jen Akins MD Work Phone: [facility] 03-11-2025 11:48-0400 Systolic blood pressure 115 mm[Hg] Jen Akins MD Work Phone: [facility] 05-05-2024 14:39-0400 Body height 165.1 cm [facility] 05-05-2024 14:39-0400 Body mass index (BMI) [Ratio] 29.2 kg/m2 [facility] 05-05-2024 14:39-0400 Body weight 79.83 kg [facility] 05-05-2024 14:39-0400 Diastolic blood pressure 74 mm[Hg] [facility] 05-05-2024 14:39-0400 Heart rate 101 /min [facility] 05-05-2024 14:39-0400 Systolic blood pressure 114 mm[Hg] [facility] 03-24-2024 11:38-0400 Body height 165.1 cm [facility] 03-24-2024 11:38-0400 Body mass index (BMI) [Ratio] 30.1 kg/m2 [facility] 03-24-2024 11:38-0400 Body weight 82.1 kg [facility] 03-24-2024 11:38-0400 Diastolic blood pressure 74 mm[Hg] [facility] 03-24-2024 11:38-0400 Heart rate 90 /min [facility] 03-24-2024 11:38-0400 Systolic blood pressure 116 mm[Hg] [facility] Encounters Encounter Date Encounter Type Care Provider Facility Start: 03-11-2025 End: 03-11-2025 ambulatory Jen Akins MD Work Phone: [facility] Work Phone: Start: 03-11-2025 End: 03-11-2025 Patient encounter procedure Jen Akins MD -[facility] Work Phone: Start: 05-05-2024 End: 05-05-2024 ambulatory [facility] Work Phone: Start: 05-05-2024 End: 05-05-2024 Patient encounter procedure [facility] Work Phone: Start: 03-25-2024 Non-patient / Non-visit [facility] Work Phone: Start: 03-24-2024 End: 03-24-2024 ambulatory [facility] Work Phone: Start: 03-24-2024 End: 03-24-2024 Patient encounter procedure [facility] Work Phone: Start: 06-20-2023 End: 06-20-2023 ambulatory CHRISTIAN HASKINS Not Available Start: 06-13-2023 End: 06-13-2023 ambulatory CHRISTIAN HASKINS Not Available Start: 06-11-2023 End: 06-11-2023 ambulatory AYALA SOSA Not Available Start: 06-06-2023 End: 06-06-2023 ambulatory CHRISTIAN BRINK Not Available Start: 06-04-2023 End: 06-04-2023 ambulatory CHRISTIAN BRINK Not Available Start: 05-28-2023 End: 05-28-2023 ambulatory CHRISTIAN BRINK Not Available Start: 05-23-2023 End: 05-24-2023 ambulatory CHRISTIAN BRINK Not Available Start: 05-21-2023 Telephone encounter Jen ZAPIEN [facility] Start: 05-21-2023 End: 05-21-2023 ambulatory KARLO Gallo MIRIAN [employer] Other Start: 02-27-2021 End: 02-28-[address] JEN AKINS Facility: Start: 11-05-2018 End: 11-06-2018 Patient encounter procedure DEFAULT PHYSICIAN Facility:[facility] Plan of Treatment Date Care Activity Detail Author Start: 03-11-2025 Patient referral [facility] Work Phone: Comprehensive metabo lic 2000 panel - Serum or Plasma [facility] CT Neck W contrast IV [facility] Microalbumin [Mass/v olume] in Urine [facility] Patient referral [facility] Work Phone: [facility] Immunizations Immunization Date Immunization Notes Care Provider Fa miguelina 05-01-2022 influenza virus vaccine, split virus (incl. purified surface antigen) Jen Akins Other [facility] [employer] Other 05-01-2022 influenza virus vaccine, unspecified formulation [facility] 04-11-2021 COVID-19 Vaccine Pfi zer - Documentation Purposes Only Jen Akins Other [facility] 04-03-2021 influenza virus vaccine, split virus (incl. purified surface antigen) Jen Akins Other [facility] [employer] Other 04-03-2021 influenza virus vaccine, unspecified formulation [facility] 10-06-2020 COVID-19 Vaccine Pfi zer - Documentation Purposes Only Jen Akins Other [facility] 09-15-2020 COVID-19 Vaccine Pfi zer - Documentation Purposes Only Jen Akins Other [facility] 03-30-2020 influenza virus vaccine, split virus (incl. purified surface antigen) Jen Akins Other [employer] Other 03-30-2020 influenza virus vaccine, unspecified formulation [facility] 03-14-2017 tetanus and diphther ia toxoids, adsorbed, preservative free, for adult use (5 Lf of tetanus toxoid and 2 Lf of diphtheria toxoid) Jen Akins Other [facility] 12-11-2016 pneumococcal polysaccharide vaccine, 23 valent Jen Akins Other [facility] 03-26-2016 tetanus and diphther ia toxoids, adsorbed, preservative free, for adult use (5 Lf of tetanus toxoid and 2 Lf of diphtheria toxoid) Jen Akins Other [facility] Payers Date Payer Category Payer Medicare [id number] 2.1 [id number] 1961 Self-pay [id number] 1960 Unknown [id number] [id number] 1960 Unknown [id number] 1958 Unknown [id number] 1958 Unknown [id number] 1958 Unknown [id number] .[id number] 1958 Unknown [id number] 1958 Unknown [id number] .[id number] 1958 Unknown [id number] 2.16.840 .[id number] 1958 Unknown [id number]. [id number] Unknown Unknown [id number] 2.16.84 [id number] Social History Date Type Detail Facility Unknown if ever smoked [facility] [employer] Other Sex Assigned At Sex Assigned At Bir th [employer] Other Start: 05-10-2023 Tobacco smoking status NHIS Never smoked tobacco (finding) [facility] Start: 1960 Sex Assigned At Male [facility] Sex Male (finding) [facility] Evaluation note Note Date & Type Note Facility Evaluation note No Information [facility] [employer] Other Evaluation note Note Date & Type Note Facility Evaluation note Diagnosis Onset Date Hyperlipidemia, unspecified acute Screening PSA (prostate specific antigen) acute Type II diabetes mellitus ac [facility] Work Phone: Evaluation note Note Date & Type Note Facility Evaluation note Diagnosis Onset Date Hyperlipidemia, unspecified acute Rosacea acute Screening PSA (prostate specific antigen) acute Type II diabetes mellitus ac [facility] Work Phone: Evaluation note Note Date & Type Note Facility Evaluation note No assessment information availa ble [facility] Work Phone: Evaluation note Note Date & Type Note Facility Evaluation note Diagnosis Onset Date Resolution Cervical lymphadenopathy acute March 11, 2025 11:26am Type 2 diabetes mellitus with hyperglycemia acute March 11:26am [facility] Work Phone: History general Narrative - Reported Note Date & Type Note Facility History general Narrative - Reported Type Medical History Rosacea Medical History Hyperlipidemia, unspecified Surgical History R foot surgery - s 2016 (Dr. Katarzyna Pozo) Hospitalization History Heat Stroke [employer] Other Hospital Discharge instructions Note Date & Type Note Facility Hospital Discharge instructions Ambulatory OrdersReferral to ENT Location: None Selected [facility] Work Phone: Reason for referral (narrative) Note Date & Type Note Facility Reason for referral (narrative) No reason for referral information available [facility] Work Phone: Summary Purpose Family History Relationship Condition Age at Onset Recorded Date/T luana father Unknown mother Diabetes mellitus Unknown Advance Directives Advance Directive Response Recorded Date/ Time Advance Directives No March 11:23am Chief Complaint and Reason for Visit Chief Complaint diabetic check up/ra sh on face Reason for Visit Hyperlipidemia, unsp ecified Screening PSA (prostate specific antigen) Type II diabetes mellitus Chief Complaint diabetic check up/ra sh on face Foot Exam:Shoes Reason for Visit Hyperlipidemia, unsp ecified Rosacea Screening PSA (prostate specific antigen) Type II diabetes mellitus Chief Complaint Admit Date lump in throat March 11, 2025 11:26am Reason for Visit Admit Date Cervical lymphadenopathy March 11, 2025 11:26am Type 2 diabetes mellitus with hyperglyce alondra March 11, 2025 11:26am Additional Source Comments (unrecognized sect ion and content) No Status Records FoundNo Status Records FoundNo Status Records Found INFORMATION SOURCE (unrecogn ized section and content) DATE CREATED AUTHOR 11/12/2018 [facility] DATE CREATED AUTHOR AUTHOR'S ORGANIZ ATION 02/28/2021 [facility] DATE CREATED AUTHOR AUTHOR'S ORGANIZ ATION 06/22/2023 [facility] EPIC REASON FOR VISIT (unrecogniz ed section and content) pt/ot ordermessage Care Teams (unrecognized sec tion and content) Team Status: Active Member Role Status Dates Jen Akins MD Primary Care Provider Active Team Status: Inactive Member Role Status Dates Jen Akins MD Primary Care Provide r, Attending Provider Active Start: March 24, 2024 End: March 24, 2024 Team Status: Active Member Role Status Dates Jen Akins MD Primary Care Provide r, Attending Provider Active Start: March 25, 2024 Team Status: Inactive Member Role Status Dates Jen Akins MD Primary Care Provide r, Attending Provider Active Start: May 05, 2024 End: May 05, 2024 Team Status: Inactive Member Role Status Dates Jen Akins MD Primary Care Provider Active Start: March 11, 2025 End: March 11, 2025 Jen Akins MD Attending Provider Active St art: March 11, 2025 End: March 11, 2025 Goals (unrecognized section and content) Goals may [...] BE BASED ON THE PRIMARY CLINICAL RECORDS. [facility] [employer] provides no warranty or guarantee of the accuracy or completeness of information in this document.
--- NOTE | 2025-03-19 12:43 | CT_ITS ---
The [address] [address] Patient Name: TIAGO JUARES MRN: [id number] date: 1960 Sex: M Assigned Patient Location: LAB Current Patient Location: LAB Accession/Order Number: [id number] Exam Date: 03/19/2025 13:30 Report Date: 03/19/2025 16:43 At the request of: NORMAN ROSADO MD Procedure: CT soft tissue neck w con CT soft tissue neck w con 03/19/2025 1:45 PM SIGNS AND SYMPTOMS: ^Cervical Lymphadenopathy R59.0 TECHNIQUE: Multidetector CT axial slices of the soft tissues of the neck were obtained with IV contrast. Sagittal and coronal reformats were reconstructed. CT was performed with one or more of the following dose reduction techniques: Automated exposure control, adjustment of the mA and/or kV according to patient size, or use of iterative reconstruction technique. COMPARISON: None FINDINGS: Mildly enlarged right level 2 lymph nodes with rounded configuration. The largest lymph node is an ovoid slightly heterogeneous in attenuation measuring 2.2 x 3.0 cm in size. On the sagittal images, enlarged lymph node demonstrates possible fluid fluid levels which may raise possibility for central areas of necrosis. There is a 0.9 x 1.2 cm lymph node with central hypoattenuation noted worrisome for central necrosis. Additional right sided lymph nodes with rounded configuration posteriorly 8 mm in size. No contralateral adenopathy. There is mild haziness of the adjacent fat fat which is a nonspecific finding. The nasopharynx, oropharynx, hypopharynx, glottic, and subglottic regions are unremarkable. The parotid glands, submandibular, and the thyroid gland are unremarkable The visualized lung parenchyma shows no acute pathology. No suspicious osseous lesion. Multilevel degenerative changes of the cervical spine. CT/CT soft tissue neck w con IMPRESSION: Pathologic adenopathy right level 2 with areas of suspected central necrosis. Findings are worrisome for possible neoplastic process. Consider percutaneous sampling versus ENT consultation. Impression dictated by: Robby Fierro M.D. 03/19/2025 4:43 PM Dictation Location: [place] [address] Electronically authenticated by: [id number] Y Date: 03/19/2025 16:43
[2025-03-19 12:57] LABS: Estimated GFR (African America >60 (>=60 mL/min/1.73m^2); Estimated GFR (Non-African Ame >60 (>=60 mL/min/1.73m^2)
== END 2025-03-19 12:30 | disposition home or self-care (01) ==
LOC: LAB 12:30
PROVIDERS: Pathology Anatomic Pathology & Clinical Pathology; PCP Family Medicine; Visit Provider Family Medicine
DX: R59.0 Localized enlarged lymph nodes (principal); R93.89 Abnormal findings on diagnostic imaging of other specified body structures
CPT/HCPCS: 36415; 70491; 82565; Q9967